=== PATIENT | female | born 1990 | race African-American/Black ===

== ENCOUNTER 2016-11-22 22:48 | Emergency (ER) | payer OTHER ==
[~2016-11-22] VITALS: Ht 167.6 cm; Wt 88.0 kg
[~2016-11-22 22:48] MED LIST: IBUP600 PO
[2016-11-22 22:50] VITALS: BP 149/87; PULSE 100; RESP 16; TEMP 98; O2SAT 100
[2016-11-22] MEDS ORDERED: ALBU6.7H INH (23:33)
[2016-11-22] MEDS ORDERED: PRED-503 PO (23:33)
[2016-11-22] MEDS ORDERED: ZITH250T PO (23:33)
--- NOTE | 2016-11-22 23:36 | PD ---
HPI Chief Complaint: Cold / Flu Symptoms Time Seen by Provider: 23:33 Travel History International Travel<30 days: Yes Contact w/Intl Traveler<30days: Yes Name of Country Traveled to: [place] Traveled to known affect area: No History of Present Illness HPI 26-year-old black female presents to emergency department with complaints of cough. She states that she's been coughing now for nearly a month. She states the symptoms are worse when she lays down at night. She does have occasional colored sputum. Some occasional shortness of breath or wheezing. She states that she has had a history of a bronchitis with reactive airway disease in the past. She states that this seems similar. She denies any persistent fevers or chills. No sore throat or ear pain. She does have some slight nasal congestion. No nausea vomiting. No abdominal pain or diarrhea. No dysuria or frequency. No rashes or lesions. PFSH Past Medical History Narrative Medical Bronchitis with RAD Hx Anticoagulant Therapy: No Cardiovascular Problems: No Chemotherapy: No Cerebrovascular Accident: No Diabetes: No Diminished Hearing: No Respiratory: No Tetanus Vaccination: < 5 Years ?: Not Past Surgical History Surgical History: No Previous Surgery Social History Alcohol Use: Yes (socially) Tobacco Use: No Substance Use: No Allergies-Medications (Allergen,Severity, Reaction): Coded Allergies: No Known Allergies (Unverified , 11/22/16) Reported Meds & Prescriptions Reported Meds & Active Scripts Active No Active Prescriptions or Reported Medications Review of Systems Except as stated in HPI: all other systems reviewed are Neg Physical Exam Narrative GENERAL: Well-developed, well-nourished in no acute distress. Nontoxic appearing. HEAD: Normocephalic, atraumatic. EYES: Pupils equal round and reactive. Extraocular motions intact. No scleral icterus. No injection or drainage. ENT: TMs clear without erythema. The external auditory canals clear. Nose: clear . Posterior pharynx is pink and moist. No tonsillar edema or exudate. Uvula midline. Airway patent. NECK: Trachea midline.Supple, nontender, moves head freely. No central bony tenderness or spasm. CARDIOVASCULAR: Regular rate and rhythm without murmurs, gallops, or rubs. RESPIRATORY: Clear to auscultation. Breath sounds equal bilaterally. No wheezes , rales, or rhonchi. GASTROINTESTINAL: Abdomen soft, non-tender, nondistended. No hepato-splenomegaly , or palpable masses. No guarding. EXTREMITIES: No clubbing, cyanosis, or edema. No joint tenderness, effusion, or edema noted. BACK: Nontender without deformity or crepitance. No flank tenderness. Data Data Last Documented VS Vital Signs Date Time Temp Pulse Resp B/P Pulse Ox O2 Delivery O2 Flow Rate FiO2 11/22/16 22:50 98.0 100 16 149/87 100 Room Air Orders Azithromycin (Zithromax) (11/22/16 23:45) Prednisone (Deltasone) (11/22/16 23:45) Benzonatate (Tessalon) (11/22/16 23:45) MDM Medical Decision Making Medical Screen Exam Complete: Yes Emergency Medical Condition: Yes Medical Record Reviewed: Yes Differential Diagnosis MDM: High Differential diagnoses: Pneumonia, bronchitis, URI, asthma, RAD, legionnaire's disease, SARS, ARDS, influenza, bronchiolitis, RSV,PE,CHF Narrative Course This is bronchitis with RAD Patient's given Zithromax 500 mg, Tessalon Perles, and prednisone 40 mg by mouth. Diagnosis Primary Impression: bronchitis with RAD Patient Instructions: General Instructions Additional Instructions: Rest. Increase fluids. Tylenol and Advil. Robitussin-DM. Zithromax, prednisone, and albuterol. Followup with your Dr. in one week. Return to the ER for any problems. Med/Other Pt SpecificInfo: Prescription(s) given Scripts Prednisone (Deltasone)20 Mg Tab20 Mg PO BID #10 TAB Prov:Mayela Montano MD 11/22/16 Albuterol 6.7 GM Inh (Proventil Hfa 6.7 GM Inh)90 Mcg/Act Aer2 Puff INH Q4-6H PRN (SHORTNESS OF BREATH) #1 INHALER Prov:Mayela Montano MD 11/22/16 Azithromycin (Zithromax)250 Mg [id number] Mg PO DIRECTED #6 TAB Take 2 tabs (500 mg) on day 1 then 1 tab daily x 4 days. Prov:Mayela Montano MD 11/22/16 Disposition: 01 DISCHARGE HOME Condition: Stable Vini Jerry Nov 22, 2016 23:36
[2016-11-22] MEDS ORDERED: BENZONATATE 100 MG CAP PO ONE (23:45)
[2016-11-22] MEDS ORDERED: predniSONE 20 MG TAB PO ONE (23:45)
[2016-11-22] MEDS ORDERED: AZITHROMYCIN 250 MG TAB PO ONE (23:45)
== END 2016-11-23 00:03 | disposition home or self-care (01) ==
LOC: NEPB 22:48
DX: J40 Bronchitis, not specified as acute or chronic (principal); J45.909 Unspecified asthma, uncomplicated
CPT/HCPCS: 99283; J7512

== ENCOUNTER 2017-06-29 22:54 | Emergency (ER) | payer SELFPAY ==
[~2017-06-29] VITALS: Ht 167.6 cm; Wt 90.0 kg
[~2017-06-29 22:54] MED LIST changes: +ALBU6.7H INH; -IBUP600 PO; +PRED-503 PO; +ZITH250T PO
[2017-06-29 22:56] VITALS: BP 159/94; PULSE 97; RESP 15; TEMP 98.9; O2SAT 100
--- NOTE | 2017-06-30 01:36 | PD ---
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 She reports that the pain has been coming and going. She reports that her cycle lasted for 3 days, however the pain is continued to recur. She is sexually active. She denies using any type of control or condoms. She is a . She denies having any new sexual partners, however she reports that she is concerned about sexually transmitted infections. She reports that she does have an abnormal vaginal odor. She was told that she has a uterine fibroid in 04/2017. Her shoe polisher is Dr. Ann. She reports that her last menstrual cycle did start earlier than usual. She reports that it was also quite heavy with clots. She reports that she did have some lightheaded sensation yesterday. She reports that she had diarrhea 2 days ago. She denies having any vomiting. She denies having any dysuria, hematuria, urinary urgency , or frequency. She denies having any known fevers, cough or congestion or otherwise on review of systems any neck pain, chest pain, shortness of breath, or neurologic symptoms. [facility] Past Medical History Narrative Medical The patient reports being diagnosed with anemia when she was a teenager. She denies ever having a blood transfusion. She has a history of a uterine fibroid. Hx Anticoagulant Therapy: No Cardiovascular Problems: No Chemotherapy: No Cerebrovascular Accident: No Diabetes: No Diminished Hearing: No Reproductive: Yes (Fibroids) Respiratory: No Tetanus Vaccination: > 5 Years Influenza Vaccination: No ?: Unknown LMP: 06/24/17 Menopausal: No : 0 Para: 0 Past Surgical History Surgical History: No Previous Surgery Social History Alcohol Use: Yes (social) Tobacco Use: No Substance Use: No Allergies-Medications (Allergen,Severity, Reaction): Coded Allergies: No Known Allergies (Unverified , 06/30/17) Reported Meds & Prescriptions Reported Meds & Active Scripts Active EC-Naprosyn (Naproxen) 500 Mg Tabdr 500 Mg PO BID PRN Flagyl (Metronidazole) 500 Mg Tab 500 Mg PO BID Review of Systems Except as stated in HPI: all other systems reviewed are Neg General / Constitutional: No: Fever Eyes: No: Visual changes HENT: No: Headaches Cardiovascular: No: Chest Pain or Discomfort Respiratory: No: Shortness of Breath Gastrointestinal: Positive: Diarrhea, Abdominal Pain, Changes in Bowel Habits, No: Nausea, Vomiting, Indigestion, Loss of Appetite Genitourinary: Positive: Pelvic Pain, Other (vaginal), No: Urgency, Frequency, Dysuria Musculoskeletal: No: Pain Skin: No Rash Neurologic: No: Weakness Psychiatric: No: Depression Endocrine: No: Polydipsia Hematologic/Lymphatic: No: Easy Bruising Physical Exam Narrative General: The patient is a well-developed well-nourished female in no acute distress. Head and Neck exam: Head is normocephalic atraumatic. Eyes: EOMI, pupils are equal round and reactive to light. Nose: Midline septum with pink mucous membranes Mouth: Dentition unremarkable. Moist mucus membranes. Posterior oropharynx is not erythematous. No tonsillar hypertrophy. Uvula midline. Airway patent. Neck: No palpable lymphadenopathy. No nuchal rigidity. No thyromegaly. Cardiovascular: Regular rate and rhythm without murmurs, gallops, or rubs. Lungs: Clear to auscultation bilaterally. No wheezes, rhonchi, or rales. Abdomen: Soft, without tenderness to palpation in all 4 quadrants of the abdomen. No guarding, rebound, or rigidity. Normal bowel sounds are audible. No tenderness on palpation of McBurney's point. The patient reports that she does not have any pain at this time. Extremities: No clubbing, cyanosis, or edema. 2+ pulses in all 4 extremities. No calf tenderness on palpation. Back: No costovertebral angle tenderness to palpation. Neurologic Exam: Grossly nonfocal. Skin Exam: No rash noted. Intact skin that is warm and dry. Gynecologic exam: The patient was placed in the dorsal lithotomy position. Her external genitalia were examined. She had no evidence of rash or lesions. The speculum was placed into her vagina and the cervix was identified. She had a white to yellow thin appearing discharge with an abnormal odor. No cervical friability. On Bimanual exam: she has no cervical motion tenderness. No adnexal tenderness or prominence noted on palpation. No uterine tenderness or enlargement noted on palpation. Data Data Last Documented VS Vital Signs Date Time Temp Pulse Resp B/P (MAP) Pulse Ox O2 Delivery O2 Flow Rate FiO2 06/30/17 01:26 20 06/29/17 22:56 98.9 97 159/94 (115) 100 Room Air Orders Orders Complete Blood Count With Diff (06/30/17 01:38) Basic Metabolic Panel (Bmp) (06/30/17 01:38) Urinalysis - C+S If Indicated (06/30/17 01:38) Thyroid Stimulating Hormone (06/30/17 01:38) Iv Access Insert/Monitor (06/30/17 01:38) Ecg Monitoring (06/30/17 01:38) Oximetry (06/30/17 01:38) Ed Urine Pregnancytest Poc (06/30/17 01:38) Gc And Chlamydia Pcr (06/30/17 01:38) Wet Prep Profile (06/30/17 01:38) Ceftriaxone Inj (Rocephin Inj) (06/30/17 02:00) Azithromycin Powd Pack (Zithromax Powd P (06/30/17 02:00) Ed Discharge Order (06/30/17 02:42) Labs Laboratory Tests Test 06/30/17 01:50 White Blood Count 8.2 TH/MM3 Red Blood Count 4.43 MIL/MM3 Hemoglobin 13.0 GM/DL Hematocrit 39.0 % Mean Corpuscular Volume 87.9 FL Mean Corpuscular Hemoglobin 29.2 PG Mean Corpuscular Hemoglobin Concent 33.3 % Red Cell Distribution Width 13.0 % Platelet Count 354 TH/MM3 Mean Platelet Volume 7.3 FL Neutrophils (%) (Auto) 45.0 % Lymphocytes (%) (Auto) 47.7 % Monocytes (%) (Auto) 5.3 % Eosinophils (%) (Auto) 1.6 % Basophils (%) (Auto) 0.4 % Neutrophils # (Auto) 3.7 TH/MM3 Lymphocytes # (Auto) 3.9 TH/MM3 Monocytes # (Auto) 0.4 TH/MM3 Eosinophils # (Auto) 0.1 TH/MM3 Basophils # (Auto) 0.0 TH/MM3 CBC Comment DIFF FINAL Differential Comment Urine Color LIGHT-YELLOW Urine Turbidity CLEAR Urine pH 5.5 Urine Specific [place] 1.011 Urine Protein NEG mg/dL Urine Glucose (UA) NEG mg/dL Urine Ketones NEG mg/dL Urine Occult Blood TRACE Urine Nitrite NEG Urine Bilirubin NEG Urine Urobilinogen LESS THAN 2.0 MG/DL Urine Leukocyte Esterase NEG Urine RBC 1 /hpf Urine WBC 1 /hpf Urine Squamous Epithelial Cells 2 /hpf Urine Bacteria RARE /hpf Urine Mucus FEW /lpf Microscopic Urinalysis Comment CULT NOT INDICATED Clue Cells (Wet Prep) PRESENT Vaginal Trichomonas (Wet Prep) NONE SEEN Vaginal Yeast (Wet Prep) NONE SEEN Blood Urea Nitrogen 9 MG/DL Creatinine 0.75 MG/DL Random Glucose 90 MG/DL Calcium Level 8.9 MG/DL Sodium Level 138 MEQ/L Potassium Level 3.7 MEQ/L Chloride Level 107 MEQ/L Carbon Dioxide Level 26.9 MEQ/L Anion Gap 4 MEQ/L Estimat Glomerular Filtration Rate 111 ML/MIN Thyroid Stimulating Hormone 3rd Gen 3.150 uIU/ML MDM Medical Decision Making Medical Screen Exam Complete: Yes Emergency Medical Condition: Yes Medical Record Reviewed: Yes Differential Diagnosis Ectopic , versus miscarriage, Bacterial vaginosis, versus PID, versus gonorrhea, versus chlamydia, versus cystitis, versus endometriosis, versus pain related to uterine fibroid, versus anemia Narrative Course During the course of the patients emergency department visit, the patients history, examination, and differential diagnosis were reviewed with the patient. The patient was placed on a cardiac cath technologist with oximetry and frequent blood pressure monitoring. The patient had IV access obtained and blood work sent for analysis. The patient was given Rocephin 1 g IV, Zithromax 1 g by mouth. The patients laboratory studies were reviewed and remarkable for a bedside test being negative. CBC is unremarkable, BMP is unremarkable, TSH within normal limits at 3.15, urinalysis shows trace occult blood, rare bacteria , culture not indicated. Urine drug screen is positive for clue cells. The patient will be discharged home with a prescription for Flagyl and doxycycline. The patient was also given a prescription for Naprosyn to be taken as needed for pain. The patient is resting comfortably and feels better, is alert and in no distress. The patients results and examination findings were discussed with the patient. The repeat examination is unremarkable and benign. The history, exam, diagnostic testing, and current condition do not suggest any significant pathology to warrant further testing, continued ED treatment, admission, or surgical evaluation at this point. The vital signs have been stable. The patient does not have uncontrollable pain, intractable vomiting, or other significant symptoms. The patient's condition is stable and appropriate for discharge. The patient will pursue further outpatient evaluation with a primary care physician or other designated or consulting physician as indicated in the discharge instructions. The patient expressed understanding and was agreeable with this plan. Diagnosis Primary Impression: Acute pelvic pain, female Additional Impression: Bacterial vaginosis Referrals: [employer] 1 week Patient Instructions: Bacterial Vaginosis (ED), General Instructions, Pelvic Pain in Women (ED) Med/Other Pt SpecificInfo: Prescription(s) given Scripts Doxycycline Hyclate (Doxycycline Hyclate) 100 Mg Cap 100 MG PO BID for Infection, #20 CAP 0 Refills Prov: Yuliya Shea MD 06/30/[address] (EC-Naprosyn) 500 Mg Tabdr 500 MG PO BID Y for PAIN GREATER THAN 5, #10 TAB 0 Refills Prov: Yuliya Shea MD 06/30/17 Metronidazole (Flagyl) 500 Mg Tab 500 MG PO BID for Infection, #14 TAB 0 Refills Prov: Yuliya Shea MD 06/30/17 Disposition: DISCHARGE HOME Condition: Stable Yuliya Shea MD Jun 30, 2017 01:36
[2017-06-30 01:58] LABS: AUTOMATED NEUTROPHIL # 3.7 TH/MM3 (1.8-7.7); BASOPHIL % 0.4 % (0.0-2.0); EOSINOPHIL # 0.1 TH/MM3 (0-0.4); EOSINOPHIL % 1.6 % (0.0-4.0); LYMPH % 47.7 % (9.0-44.0); LYMPHOCYTE # 3.9 TH/MM3 (1.0-4.8); MEAN CELL VOLUME 87.9 FL (80.0-100.0); MEAN CORPUSCULAR HEMOGLOBIN 29.2 PG (27.0-34.0); MEAN CORPUSCULAR HGB CONC 33.3 % (32.0-36.0); MEAN PLATELET VOLUME 7.3 FL (7.0-11.0); MONO % 5.3 % (0.0-8.0); MONOCYTE # 0.4 TH/MM3 (0-0.9); PLATELET COUNT 354 TH/MM3 (150-450); RED BLOOD COUNT 4.43 MIL/MM3 (4.00-5.30); WHITE BLOOD COUNT 8.2 TH/MM3 (4.0-11.0)
[2017-06-30] MEDS ORDERED: cefTRIAXone INJ 1,000 MG in SODIUM CHLORIDE 0.9% INJ 100 ML IV ONE (02:00)
[2017-06-30] MEDS ORDERED: AZITHROMYCIN PWD FOR SUSP 1 GM PACKET PO ONE (02:00)
[2017-06-30 02:01] LABS: BACTERIA, URINE RARE /hpf; BILIRUBIN, URINE NEG (NEG); BLOOD, URINE TRACE (NEG); GLUCOSE,URINE NEG (NEG); KETONE, URINE NEG (NEG); MUCUS URINE FEW /lpf (OCC); NITRITE,URINE NEG (NEG); PH, URINE 5.5 (5.0-8.5); SQUAMOUS EPITHELIAL CELL URINE 2 /hpf (0-5); URINE COLOR LIGHT-YELLOW (YELLW/STRAW); URINE LEUKOCYTE ESTERASE NEG (NEG)
[2017-06-30 02:17] LABS: BICARBONATE 26.9 MEQ/L (21.0-32.0); CALCIUM 8.9 MG/DL (8.5-10.1); CREATININE 0.75 MG/DL (0.50-1.00)
[2017-06-30] MEDS ORDERED: METR-1 PO (02:41)
[2017-06-30] MEDS ORDERED: EC-N500T PO (02:42)
[2017-06-30] MEDS ORDERED: DOXY100C PO (02:47)
== END 2017-06-30 04:35 | disposition home or self-care (01) ==
LOC: NEPE 22:54
DX: N76.0 Acute vaginitis (principal); R19.7 Diarrhea, unspecified
CPT/HCPCS: 80048; 81001; 84443; 84703; 85025; 87210; 87491; 87591; 96365; 96366; 99284; J0696

== ENCOUNTER 2017-08-12 13:10 | Emergency (ER) | payer SELFPAY ==
[~2017-08-12] VITALS: Ht 167.6 cm; Wt 93.2 kg
[~2017-08-12 13:10] MED LIST changes: -ALBU6.7H INH; +DOXY100C PO; +METR-1 PO; +NAPR-810 PO; -PRED-503 PO; -ZITH250T PO
[2017-08-12 13:16] VITALS: BP 136/76; PULSE 103; RESP 12; TEMP 97.7; O2SAT 100
[2017-08-12 14:07] LABS: BLOOD, URINE NEG (NEG); COMMENT (UR) CULT NOT INDICATED; CULTURE IF INDICATED CULT NOT INDICATED; GLUCOSE,URINE NEG (NEG); KETONE, URINE NEG (NEG); MUCUS URINE FEW /lpf (OCC); NITRITE,URINE NEG (NEG); PH, URINE 6.5 (5.0-8.5); SQUAMOUS EPITHELIAL CELL URINE 6 /hpf (0-5); URINE COLOR YELLOW (YELLW/STRAW)
[2017-08-12 14:55] LABS: BETA HCG QUANT 63295 MIU/ML (0-5)
[2017-08-12] MEDS ORDERED: SODIUM CHLOR 0.9% 1000 ML INJ 1,000 ML IV ONE (15:18)
[2017-08-12] MEDS ORDERED: SODIUM CHLORIDE 0.9% FLUSH 10 ML FLUSH IVF PRN (15:30)
--- NOTE | 2017-08-12 15:30 | PD ---
HPI Chief Complaint: Abdominal Pain Time Seen by Provider: 15:18 Travel History International Travel<30 days: No Contact w/Intl Traveler<30days: No Traveled to known affect area: No History of Present Illness HPI Patient is a 27-year-old female who presents to emergency room with complaints of left lower quadrant abdominal pain and cramping. Patient reports that her first day of her last menstrual cycle was June 24, patient is about 7 weeks' at this time. Patient reports that she found out that she was one week ago via home test. Patient reports that for the past few days, she has been having increased lower abdominal cramping, reports increased pain to left lower quadrant. Patient denies any vaginal discharge or bleeding, reports that this is her first , reports that she has never had an or miscarriage in the past. Reports that she has been feeling nauseous, no vomiting. Patient with no fever or chills, no constipation or diarrhea. Patient does follow-up with DIRECTOR OF PURCHASING, Dr. Bermudez, she has not seen him in the office yet. PFSH Past Medical History Hx Anticoagulant Therapy: No Cardiovascular Problems: No Chemotherapy: No Cerebrovascular Accident: No Diabetes: No Diminished Hearing: No Reproductive: Yes (Fibroids) Respiratory: No Tetanus Vaccination: Unknown ?: Menopausal: No : 0 Para: 0 Past Surgical History Surgical History: No Previous Surgery Social History Alcohol Use: Yes (social) Tobacco Use: No Substance Use: No Allergies-Medications (Allergen,Severity, Reaction): Coded Allergies: No Known Allergies (Unverified Adverse Reaction, Unknown, 08/12/17) Reported Meds & Prescriptions Reported Meds & Active Scripts Active Doxycycline Hyclate 100 Mg Cap 100 Mg PO BID EC-Naprosyn (Naproxen) 500 Mg Tabdr 500 Mg PO BID PRN Flagyl (Metronidazole) 500 Mg Tab 500 Mg PO BID Review of Systems General / Constitutional: No: Fever Eyes: No: Visual changes HENT: No: Headaches Cardiovascular: No: Chest Pain or Discomfort Respiratory: No: Shortness of Breath Gastrointestinal: Positive: Nausea, No: Vomiting, Diarrhea, Abdominal Pain Genitourinary: Positive: Pelvic Pain, No: Dysuria, Discharge, Vaginal Bleeding Musculoskeletal: No: Pain Skin: No Rash Neurologic: No: Weakness Psychiatric: No: Depression Endocrine: No: Polydipsia Hematologic/Lymphatic: No: Easy Bruising Physical Exam Narrative GENERAL: Mild distress SKIN: Focused skin assessment warm/dry. HEAD: Atraumatic. Normocephalic. EYES: Pupils equal and round. No scleral icterus. No injection or drainage. ENT: No nasal bleeding or discharge. Mucous membranes pink and moist. NECK: Trachea midline. No JVD. CARDIOVASCULAR: Regular rate and rhythm. No murmur appreciated. RESPIRATORY: No accessory muscle use. Clear to auscultation. Breath sounds equal bilaterally. GASTROINTESTINAL: Abdomen soft, non-tender, nondistended. Hepatic and splenic margins not palpable. MUSCULOSKELETAL: No obvious deformities. No clubbing. No cyanosis. No edema. NEUROLOGICAL: Awake and alert. No obvious cranial nerve deficits. Motor grossly within normal limits. Normal speech. PSYCHIATRIC: Appropriate mood and affect; insight and judgment normal. Data Data Last Documented VS Vital Signs Date Time Temp Pulse Resp B/P (MAP) Pulse Ox O2 Delivery O2 Flow Rate FiO2 08/12/17 15:20 18 08/12/17 13:16 97.7 103 136/76 (96) 100 Orders Orders Urinalysis - C+S If Indicated (08/12/17 13:19) Ed Urine Pregnancytest Poc (08/12/17 13:19) Beta Hcg (Quant/Titer) (08/12/17 13:19) Gc And Chlamydia Pcr (08/12/17 13:19) Complete Blood Count With Diff (08/12/17 15:18) Comprehensive Metabolic Panel (08/12/17 15:18) Iv Access Insert/Monitor (08/12/17 15:18) Sodium Chloride 0.9% Flush (Ns Flush) (08/12/17 15:30) Sodium Chlor 0.9% 1000 Ml Inj (Ns 1000 M (08/12/17 15:18) Us Pelvis (Ques Pr/Ect)W Trans (08/12/17 ) Ed Discharge Order (08/12/17 17:05) Labs Laboratory Tests Test 08/12/17 13:30 08/12/17 13:34 08/12/17 16:00 Urine Color YELLOW Urine Turbidity CLEAR Urine pH 6.5 Urine Specific [place] 1.016 Urine Protein NEG mg/dL Urine Glucose (UA) NEG mg/dL Urine Ketones NEG mg/dL Urine Occult Blood NEG Urine Nitrite NEG Urine Bilirubin NEG Urine Urobilinogen LESS THAN 2.0 MG/DL Urine Leukocyte Esterase NEG Urine RBC LESS THAN 1 /hpf Urine WBC 1 /hpf Urine Squamous Epithelial Cells 6 /hpf Urine Mucus FEW /lpf Microscopic Urinalysis Comment CULT NOT INDICATED Human Chorionic Gonadotropin, Quant 84124 MIU/ML White Blood Count 7.5 TH/MM3 Red Blood Count 4.14 MIL/MM3 Hemoglobin 12.1 GM/DL Hematocrit 36.2 % Mean Corpuscular Volume 87.4 FL Mean Corpuscular Hemoglobin 29.2 PG Mean Corpuscular Hemoglobin Concent 33.4 % Red Cell Distribution Width 12.6 % Platelet Count 319 TH/MM3 Mean Platelet Volume 7.1 FL Neutrophils (%) (Auto) 56.4 % Lymphocytes (%) (Auto) 36.0 % Monocytes (%) (Auto) 5.2 % Eosinophils (%) (Auto) 1.8 % Basophils (%) (Auto) 0.6 % Neutrophils # (Auto) 4.3 TH/MM3 Lymphocytes # (Auto) 2.7 TH/MM3 Monocytes # (Auto) 0.4 TH/MM3 Eosinophils # (Auto) 0.1 TH/MM3 Basophils # (Auto) 0.0 TH/MM3 CBC Comment DIFF FINAL Differential Comment Blood Urea Nitrogen 7 MG/DL Creatinine 0.67 MG/DL Random Glucose 81 MG/DL Total Protein 7.5 GM/DL Albumin 3.9 GM/DL Calcium Level 8.9 MG/DL Alkaline Phosphatase 55 U/L Aspartate Amino Transf (AST/SGOT) 11 U/L Alanine Aminotransferase (ALT/SGPT) 13 U/L Total Bilirubin 0.3 MG/DL Sodium Level 135 MEQ/L Potassium Level 4.0 MEQ/L Chloride Level 103 MEQ/L Carbon Dioxide Level 24.4 MEQ/L Anion Gap 8 MEQ/L Estimat Glomerular Filtration Rate 126 ML/MIN [facility] Medical Decision Making Medical Screen Exam Complete: Yes Emergency Medical Condition: Yes Medical Record Reviewed: Yes Interpretation(s) Vital Signs Date Time Temp Pulse Resp B/P (MAP) Pulse Ox O2 Delivery O2 Flow Rate FiO2 08/12/17 15:20 18 08/12/17 13:16 97.7 103 12 136/76 (96) 100 Differential Diagnosis Hyperemesis gravidarum, ectopic , threatened miscarriage Narrative Course Patient is a 27-year-old female who presents to emergency room with her first , reports that she has increased lower abdominal pain and cramping with pain worse to her left lower quadrant. Patient with no vaginal bleeding or vaginal discharge at this time. She is followed with Dr. Bermudez DIRECTOR OF PURCHASING - she has not seen him for her first appointment yet. Patient's first day of her last mental cycle was June 24, 2017, patient is about 7 weeks' at this time. During the course of the patients emergency department visit, the patients history, examination, and differential diagnosis were reviewed with the patient. The patient was placed on a monitoring specialist with oximetry and frequent blood pressure monitoring. The patient had an IV access obtained and blood work sent for analysis. The patient was initially provided IVF The patients laboratory studies were reviewed and remarkable for: CBC & BMP Diagram 08/12/17 16:00 US pelvis: ViableIUP with a heart rate of 137 beats a minute, gestational age 7 weeks and 1 day I reviewed all labs and all studies with patient in detail. Patient with most likely with early . Understands that I cannot rule out threatened AB. Discussed need for pelvic rest. Patient will follow-up with her DIRECTOR OF PURCHASING, she will return to the emergency room as needed. Diagnosis Primary Impression: Miscarriage, threatened, early Patient Instructions: General Instructions Additional Instructions: Please provide patient with a copy of their lab work and studies at discharge* * Please follow up with your primary care doctor in 2-3 days Return to the ER if symptoms worsen or progress Return to the ER as needed Pelvic rest until you're seen and cleared by your DIRECTOR OF PURCHASING Please follow up with all cultures from today Disposition: 01 DISCHARGE HOME Condition: Stable Ayesha Vázquez DO Aug 12, 2017 15:30
[2017-08-12 16:29] LABS: AUTOMATED NEUTROPHIL # 4.3 TH/MM3 (1.8-7.7); BASOPHIL % 0.6 % (0.0-2.0); EOSINOPHIL # 0.1 TH/MM3 (0-0.4); EOSINOPHIL % 1.8 % (0.0-4.0); HEMATOCRIT 36.2 % (35.0-46.0); HEMO FLAGS DIFF FINAL; LYMPHOCYTE # 2.7 TH/MM3 (1.0-4.8); MEAN CELL VOLUME 87.4 FL (80.0-100.0); MEAN CORPUSCULAR HEMOGLOBIN 29.2 PG (27.0-34.0); MEAN CORPUSCULAR HGB CONC 33.4 % (32.0-36.0); MONO % 5.2 % (0.0-8.0); NEUT % 56.4 % (16.0-70.0); PLATELET COUNT 319 TH/MM3 (150-450); RED BLOOD COUNT 4.14 MIL/MM3 (4.00-5.30); RED CELL DISTRIBUTION WIDTH 12.6 % (11.6-17.2); WHITE BLOOD COUNT 7.5 TH/MM3 (4.0-11.0)
--- NOTE | 2017-08-12 16:54 | RADRPT ---
EXAM DATE/TIME: 08/12/2017 15:29 [place] COMPARISON: No previous studies available for comparison. INDICATIONS : Pain with . LAB(S): Beta-hC MEDICAL HISTORY : . Uterine fibroids. SURGICAL HISTORY : None. ENCOUNTER: Subsequent ACUITY: 1 day PAIN SCORE: 5/10 LOCATION: Bilateral pelvis MEASUREMENTS: UTERUS: 11.1 x 7.7 x 5.8 cm ENDOMETRIAL STRIPE: 13 mm RIGHT OVARY: 3.7 x 2.7 x 2.0 cm LEFT OVARY: 4.3 x 3.2 x 2.4 cm FREE FLUID: Yes Trace in posterior cul de sac. CROWN RUMP LENGTH: 1.1 cm = 7 WKS 1 DAYS FHR: 137 BPM FINDINGS: UTERUS: Multiple nodular densities on the uterine myometrium with the largest measuring 4.0 x 2.6 x 2.0 cm an d a second lesion in the body measuring 1.0 x 0.9 x 0.7 cm. Gestational sac measures 3.2 x 3.4 x 1.2 cm corresponding to a gestational age of 7 weeks and 2 days. pole is identified with crown-rum p length of 1.1 cm corresponding to a gestational age of 7 weeks and one day. heart motions are identified 137 beats per minute. Yolk sac is present. RIGHT OVARY: Ovary contains no mass or significant cystic lesion. LEFT OVARY: Prominent cystic area in the midpole measuring 2.1 x 1.6 x 1.3 cm with a solid nodule inferiorly parker uring 2.7 x 2.4 x 1.9 cm. MISCELLANEOUS: Small amount of free fluid in the cul-de-sac. CONCLUSION: 1. Viable intrauterine with an estimated gestational age of 7 weeks and one day. 2. Multiple uterine fibroids, the largest in the body of uterus measures 4 cm in diameter. 3. Small amount of free fluid in the cul-de-sac. 4. 2 lesions, each measuring approximately 2 cm in diameter on the left ovary are most characteristic of a simple and probable hemorrhagic cyst Luis Medley MD on August 12, 2017 at 16:46 Board Certified Radiologist. This report was verified electronically.
[2017-08-12 17:02] LABS: ALT (GPT) 13 U/L (10-53); ANION GAP 8 MEQ/L (5-15); AST (GOT) 11 U/L (15-37); BICARBONATE 24.4 MEQ/L (21.0-32.0); BLOOD UREA NITROGEN 7 MG/DL (7-18); CHLORIDE 103 MEQ/L (98-107); GLOMERULAR FILTRATION RATE 126 ML/MIN (>89); SODIUM (NA) 135 MEQ/L (136-145)
[2017-08-12 17:05] LABS: ALKALINE PHOSPHATASE 55 U/L (45-117); TOTAL BILIRUBIN ADULT 0.3 MG/DL (0.2-1.0)
[2017-08-12 17:23] VITALS: BP 119/73
[2017-08-12 17:55] LABS: CHLAMYDIA PCR NOT DETECTED (NOT DETECT); NEISSERIA PCR NOT DETECTED (NOT DETECT)
== END 2017-08-12 17:24 | disposition home or self-care (01) ==
LOC: NEPD 13:10
DX: O20.0 Threatened abortion (principal); Z3A.01 Less than 8 weeks gestation of pregnancy
CPT/HCPCS: 76700; 76817; 80053; 81001; 84702; 84703; 85025; 87491; 87591; 96360; 99285; J7030